=== PATIENT | male | born 1990 | race Caucasian/White ===

== ENCOUNTER 2019-02-05 10:02 | Emergency (ER) | payer OTHER ==
[2019-02-05] MEDS ORDERED: Clindamycin HCl 150 MG Cap PO ONE (10:21)
--- NOTE | 2019-02-05 10:27 | EDM.PDOC ---
ED HPI GENERAL MEDICAL PROBLEM - General Chief Complaint: ENT Problem Stated Complaint: SORE THROAT Time Seen by Provider: 02/05/19 10:10 Source of Information: Reports: Patient History Limitations: Reports: No Limitations - History of Present Illness INITIAL COMMENTS - FREE TEXT/NARRATIVE: HISTORY AND PHYSICAL: History of present illness: Patient is a 28-year-old male who presents to the emergency room with complaints of sore throat and left ear pain. Has been using Tylenol and ibuprofen without much relief. Patient denies any fever, chills, headache, change in vision, syncope or near syncope. Denies any chest pain, back pain, shortness of breath or cough. Denies any GI or symptoms. Patient has been eating and drinking appropriately. Review of systems: As per history of present illness and below otherwise all systems reviewed and negative. Past medical history: As per history of present illness and as reviewed below otherwise noncontributory. Surgical history: As per history of present illness and as reviewed below otherwise noncontributory. Social history: See social history for further information Family history: As per history of present illness and as reviewed below otherwise noncontributory. Physical exam: General: Well-developed and well-nourished 28-year-old male. Alert and oriented. Nontoxic appearing and in no acute distress. HEENT: Atraumatic, normocephalic, pupils equal and reactive bilaterally, negative for conjunctival pallor or scleral icterus, mucous membranes moist, TMs normal bilaterally, throat erythematous with minimal lateral exudate, no pillor shifting or fullness, neck supple, nontender, trachea midline. No drooling or trismus noted. No meningeal signs. No hot potato voice noted. Lungs: Clear to auscultation, breath sounds equal bilaterally, chest nontender. Heart: S1S2, regular rate and rhythm without overt murmur Abdomen: Soft, nondistended, nontender. Skin: Intact, warm, dry. No lesions or rashes noted. Extremities: Atraumatic, moves all extremities per self without difficulty or deficits, negative for cords or calf pain. Neurovascular unremarkable. Neuro: Awake, alert, oriented. Cranial nerves II through XII unremarkable. Cerebellum unremarkable. Motor and sensory unremarkable throughout. Exam nonfocal. Notes: Medication and supportive care measures were reviewed and discussed. Voices understanding and is agreeable to plan of care. Denies any further questions or concerns at this time. Diagnostics: None Therapeutics: Clindamycin Prescription: Clindamycin Phenergan with codeine (#4oz) Impression: Pharyngitis Plan: 1. Take your medication as directed. 2. Warm Salt water gargles (rinse and spit) 3-4 x daily. Please get a new tooth brush after completion of your medication 3. Tylenol and or ibuprofen as needed for pain management. 4. Follow-up with your primary care provider in the next 1-2 days. Return to the ED as needed and as discussed. Definitive disposition and diagnosis as appropriate pending reevaluation and review of above. Throat Pain Score (Numeric/FACES): 4 - Related Data Allergies Allergy/AdvReac Type Severity Reaction Status Date / Time amoxicillin Allergy Other Verified 02/05/19 10:14 Home Meds: Home Meds . [No Known Home Meds] 02/05/19 [History] Past Medical History - Past Health History Medical/Surgical History: Denies Medical/Surgical History - Past Surgical History HEENT Surgical History: Reports: Oral Surgery Social & Family History - Family History Family Medical History: Noncontributory - Tobacco Use Smoking Status *Q: Never Smoker - Recreational Drug Use Recreational Drug Use: No ED ROS ENT - Review of Systems Review Of Systems: ROS reveals no pertinent complaints other than HPI. ED EXAM, ENT - Physical Exam Exam: See Below (See dictation) Course - Vital Signs Last Recorded V/S: Last Vital Signs Temp 97.0 F 02/05/19 10:12 Pulse 62 02/05/19 10:12 Resp 18 02/05/19 10:12 BP 126/69 02/05/19 10:12 Pulse Ox 96 02/05/19 10:12 - Orders/Labs/Meds Orders: Active Orders 24 hr Category Date Time Status Clindamycin HCl [Cleocin] Med 02/05/19 10:21 Once 300 mg PO ONETIME ONE Medication Orders Clindamycin HCl (Cleocin) 300 mg PO ONETIME ONE Stop: 02/05/19 10:22 Meds: Medications Generic Name Dose Route Start Last Admin Trade Name Freq PRN Reason Stop Dose Admin Clindamycin HCl 300 mg 02/05/19 10:21 Cleocin PO 02/05/19 10:22 ONETIME ONE Departure - Departure Time of Disposition: 10:22 Disposition: Home, Self-Care 01 Clinical Impression: Pharyngitis Qualifiers: Pharyngitis/tonsillitis etiology: unspecified etiology Qualified Code(s): J02.9 - Acute pharyngitis, unspecified - Discharge Information Instructions: Pharyngitis, [id number] Additional Instructions: The following information is given to patients seen in the emergency department who are being discharged to home. This information is to outline your options for follow-up care. We provide all patients seen in our emergency department with a follow-up referral. The need for follow-up, as well as the timing and circumstances, are variable depending upon the specifics of your emergency department visit. If you don't have a primary care physician on staff, we will provide you with a referral. We always advise you to contact your personal physician following an emergency department visit to inform them of the circumstance of the visit and for follow-up with them and/or the need for any referrals to a consulting specialist. The emergency department will also refer you to a specialist when appropriate. This referral assures that you have the opportunity for follow-up care with a specialist. All of these measure are taken in an effort to provide you with optimal care, which includes your follow-up. Under all circumstances we always encourage you to contact your private physician who remains a resource for coordinating your care. When calling for follow-up care, please make the office aware that this follow-up is from your recent emergency room visit. If for any reason you are refused follow-up, please contact the [facility] Emergency Department at and asked to speak to the emergency department charge nurse. [facility] [address] [place] [address] [id number] [address] [address] 1. Take your medication as directed. 2. Warm Salt water gargles (rinse and spit) 3-4 x daily. Please get a new tooth brush after completion of your medication 3. Tylenol and or ibuprofen as needed for pain management. 4. Follow-up with your primary care provider in the next 1-2 days. Return to the ED as needed and as discussed. - My Orders Last 24 Hours: My Active Orders 02/05/19 10:21 Clindamycin HCl [Cleocin] 300 mg PO ONETIME ONE - Assessment/Plan Last 24 Hours: My Active Orders 02/05/19 10:21 Clindamycin HCl [Cleocin] 300 mg PO ONETIME ONE
== END 2019-02-05 10:34 | disposition home or self-care (01) ==
LOC: MW.ED 10:02
DX: J02.9 Acute pharyngitis, unspecified (principal); Z88.1 Allergy status to other antibiotic agents; Z98.890 Other specified postprocedural states
CPT/HCPCS: 99282; A9270

== ENCOUNTER 2019-02-06 11:58 | Emergency (ER) | payer OTHER ==
[2019-02-06] MEDS ORDERED: Sodium Chloride 0.9% 1,000 ML IV ONE (12:01)
[2019-02-06] MEDS ORDERED: methylPREDNISolone Sodium Succinate 125 MG/2 ML SDV IVPUSH ONE (12:01)
[2019-02-06] MEDS ORDERED: Ketorolac 30 MG/ML SDV IVPUSH ONE (12:02)
--- NOTE | 2019-02-06 12:13 | EDM.PDOC ---
ED HPI GENERAL MEDICAL PROBLEM - General Chief Complaint: ENT Problem Stated Complaint: SWOLLEN THROAT TROUBLE BREATHING Time Seen by Provider: 02/06/19 12:01 Source of Information: Reports: Patient History Limitations: Reports: No Limitations - History of Present Illness INITIAL COMMENTS - FREE TEXT/NARRATIVE: HISTORY AND PHYSICAL: History of present illness: Patient is a 28-year-old male who presents to the emergency room with complaints of throat pain, swelling and dyspnea. Patient was seen in the emergency room yesterday for pharyngitis/tonsillitis and was started on clindamycin. He states he has taken 4 doses of his clindamycin and is not getting any relief, in fact feel like his tonsils have gotten larger and has difficulty swallowing his secretions. Patient denies any fever, chills, headache , change in vision, syncope or near syncope. Denies any chest pain, back pain, shortness of breath or cough. Denies any abdominal pain, nausea, vomiting, diarrhea, constipation or dysuria. Has not noted any blood in urine or stool. Patient has been eating and drinking appropriately. Review of systems: As per history of present illness and below otherwise all systems reviewed and negative. Past medical history: As per history of present illness and as reviewed below otherwise noncontributory. Surgical history: As per history of present illness and as reviewed below otherwise noncontributory. Social history: See social history for further information Family history: As per history of present illness and as reviewed below otherwise noncontributory. Physical exam: General: Well-developed and well-nourished 28-year-old male. Alert and oriented. Nontoxic appearing and mildly uncomfortable due to throat pain vital signs are stable and have been reviewed by me. HEENT: Atraumatic, normocephalic, pupils equal and reactive bilaterally, negative for conjunctival pallor or scleral icterus, mucous membranes moist, TMs normal bilaterally, patient is unable to fully open his mouth due to pain. Of what I can view there is moderate swelling of bilateral tonsils with erythema. Neck supple, enlarged lymph nodes bilaterally, lymph node tenderness to the left neck trachea midline. No drooling noted. No meningeal signs. Lungs: Clear to auscultation, breath sounds equal bilaterally, chest nontender. Heart: S1S2, regular rate and rhythm without overt murmur Abdomen: Soft, nondistended, nontender. Negative for masses or hepatosplenomegaly. Negative for costovertebral tenderness. Skin: Intact, warm, dry. No lesions or rashes noted. Extremities: Atraumatic, moves all extremities per self without difficulty or deficits, negative for cords or calf pain. Neurovascular unremarkable. Neuro: Awake, alert, oriented. Cranial nerves II through XII unremarkable. Cerebellum unremarkable. Motor and sensory unremarkable throughout. Exam nonfocal. Notes: Physical examination reveals tonsils that are much larger than previous. We'll do a CT along with lab work to rule out peritonsillar abscess. Patient does have a white count of 13.47. He has a 1.6 x 2.2 x 1.5 cm left peritonsillar abscess with adjacent edema and mass effect on the adjacent airway. We currently do not not have any ENT available in [place]. [facility] in [place] was consulted, Dr Gaona, accepted this patient. Patient is aware of diagnostics. We discussed the need for transfer, he declines EMS transfer. He is aware of the risks of signing out AGAINST MEDICAL ADVICE to drive himself to [facility], including . He accepts these risks and would like to take his private vehicle. Vital signs are stable. Patient received IV Cipro and Rocephin prior to transfer to [facility] in [place] Diagnostics: CBC, CMP, CT soft tissue neck Therapeutics: IV fluid, Solu-Medrol Impression: Peritonsillar abscess, left Plan: Go directly to [facility] ER: Dr Gaona Nothing to eat or drink until you are cleared by the doctor in [place] Definitive disposition and diagnosis as appropriate pending reevaluation and review of above. Throat Pain Score (Numeric/FACES): 8 - Related Data Allergies Allergy/AdvReac Type Severity Reaction Status Date / Time amoxicillin Allergy Other Verified 02/06/19 12:03 Home Meds: Home Meds Clindamycin HCl [Cleocin HCl] 300 mg PO TID 02/06/19 [History] Past Medical History - Past Health History Medical/Surgical History: Denies Medical/Surgical History - Past Surgical History HEENT Surgical History: Reports: Oral Surgery Social & Family History - Family History Family Medical History: Noncontributory ED ROS ENT - Review of Systems Review Of Systems: ROS reveals no pertinent complaints other than HPI. ED EXAM, ENT - Physical Exam Exam: See Below (See dictation) Course - Vital Signs Last Recorded V/S: Last Vital Signs Temp 99.1 F 02/06/19 12:03 Pulse 108 H 02/06/19 12:03 Resp 20 02/06/19 12:03 BP 154/81 H 02/06/19 12:03 Pulse Ox 96 02/06/19 12:03 - Orders/Labs/Meds Orders: Active Orders 24 hr Category Date Time Status CULTURE BLOOD [BC] Stat Lab 02/06/19 12:21 Received CULTURE BLOOD [] Stat Lab 02/06/19 12:28 Received CULTURE STREP A CONFIRMATION [] Stat Lab 02/06/19 12:07 Results STREP SCRN A RAPID W CULT CONF [] Stat Lab 02/06/19 12:07 Results Clindamycin Phosphate in D5W [Cleocin in D5W] 900 mg Med 02/06/19 14:27 Ordered Premix Bag 1 bag IV ONETIME cefTRIAXone [Rocephin in Dextrose,Iso-Osm 1 GM/50 ML] 1 Med 02/06/19 14:27 Ordered gm Premix Bag 1 bag IV ONETIME Blood Culture x2 Reflex Set [OM.PC] Stat Oth 02/06/19 12:13 Ordered Medication Orders Ceftriaxone Sodium/Dextrose 1 (gm/ Premix) 50 mls @ 100 mls/hr IV ONETIME ONE Stop: 02/06/19 14:56 Last Admin: 02/06/19 14:34 Dose: Not Given Clindamycin Phosphate 900 mg/ (Premix) 50 mls @ 100 mls/hr IV ONETIME ONE Stop: 02/06/19 14:56 Labs: Laboratory Tests 02/06/19 02/06/19 Range/Units 12:00 12:00 WBC 13.47 H (4.0-11.0) K/uL RBC 4.98 (4.50-5.90) M/uL Hgb 15.3 (13.0-17.0) g/dL Hct 44.3 (38.0-50.0) % MCV 89.0 (80.0-98.0) fL MCH 30.7 (27.0-32.0) pg MCHC 34.5 (31.0-37.0) g/dL RDW Std Deviation 41.2 (28.0-62.0) fl RDW Coeff of Sunil 13 (11.0-15.0) % Plt Count 267 (150-400) K/uL MPV 9.50 (7.40-12.00) fL Neut % (Auto) 79.3 (48.0-80.0) % Lymph % (Auto) 11.1 L (16.0-40.0) % [place] % (Auto) 9.1 (0.0-15.0) % Eos % (Auto) 0.4 (0.0-7.0) % Baso % (Auto) 0.1 (0.0-1.5) % Neut # (Auto) 10.7 H (1.4-5.7) K/uL Lymph # (Auto) 1.5 (0.6-2.4) K/uL [place] # (Auto) 1.2 H (0.0-0.8) K/uL Eos # (Auto) 0.1 (0.0-0.7) K/uL Baso # (Auto) 0.0 (0.0-0.1) K/uL Nucleated RBC % 0.0 /100WBC Nucleated RBCs # 0 K/uL Sodium 139 (136-148) mmol/L Potassium 3.8 (3.5-5.1) mmol/L Chloride 103 (98-107) mmol/L Carbon Dioxide 26.2 (21.0-32.0) mmol/L BUN 14 (7.0-18.0) mg/dL Creatinine 0.9 (0.8-1.3) mg/dL Est Cr Clr Drug Dosing 139.33 mL/min Estimated GFR (MDRD) > 60.0 ml/min Glucose 100 (74-106) mg/dL Calcium 9.2 (8.5-10.1) mg/dL Total Bilirubin 0.8 (0.2-1.0) mg/dL AST 14 L (15-37) IU/L ALT 26 (14-63) IU/L Alkaline Phosphatase 62 (46-116) U/L Total Protein 8.0 (6.4-8.2) g/dL Albumin 4.1 (3.4-5.0) g/dL Globulin 3.9 (2.6-4.0) g/dL Albumin/Globulin Ratio 1.1 (0.9-1.6) Meds: Medications Generic Name Dose Route Start Last Admin Trade Name Freq PRN Reason Stop Dose Admin Ceftriaxone Sodium/Dextrose 1 50 mls @ 100 mls/hr 02/06/19 14:27 02/06/19 14: 34 gm/ Premix IV 02/06/19 14:56 Not Given ONETIME ONE Clindamycin Phosphate 900 mg/ 50 mls @ 100 mls/hr 02/06/19 14:27 Premix IV 02/06/19 14:56 ONETIME ONE Discontinued Medications Generic Name Dose Route Start Last Admin Trade Name Grace PRN Reason Stop Dose Admin Sodium Chloride 1,000 mls @ 999 mls/hr 02/06/19 12:01 02/06/19 12:15 Normal Saline IV 02/06/19 13:01 999 mls/hr STAT ONE Administration Ketorolac Tromethamine 30 mg 02/06/19 12:02 02/06/19 12:15 Toradol IVPUSH 02/06/19 12:03 30 mg ONETIME ONE Administration Methylprednisolone Sodium Succinate 125 mg 02/06/19 12:01 02/06/19 12:15 Solu-Medrol IVPUSH 02/06/19 12:02 125 mg ONETIME ONE Administration Morphine Sulfate 4 mg 02/06/19 14:28 02/06/19 14:33 Morphine IVPUSH 02/06/19 14:29 Not Given ONETIME ONE Ondansetron HCl 4 mg 02/06/19 14:28 02/06/19 14:33 Zofran IVPUSH 02/06/19 14:29 Not Given ONETIME ONE Departure - Departure Time of Disposition: 14:41 Disposition: DC/Tfer to Other 70 Clinical Impression: Peritonsillar abscess - Discharge Information Instructions: Skin Abscess, [id number] Referrals: PCP,Unknown [Primary Care Provider] - Forms: ED Department Discharge Additional Instructions: The following information is given to patients seen in the emergency department who are being discharged to home. This information is to outline your options for follow-up care. We provide all patients seen in our emergency department with a follow-up referral. The need for follow-up, as well as the timing and circumstances, are variable depending upon the specifics of your emergency department visit. If you don't have a primary care physician on staff, we will provide you with a referral. We always advise you to contact your personal physician following an emergency department visit to inform them of the circumstance of the visit and for follow-up with them and/or the need for any referrals to a consulting specialist. The emergency department will also refer you to a specialist when appropriate. This referral assures that you have the opportunity for follow-up care with a specialist. All of these measure are taken in an effort to provide you with optimal care, which includes your follow-up. Under all circumstances we always encourage you to contact your private physician who remains a resource for coordinating your care. When calling for follow-up care, please make the office aware that this follow-up is from your recent emergency room visit. If for any reason you are refused follow-up, please contact the [facility] Emergency Department at and asked to speak to the emergency department charge nurse. [facility] [address] [facility] [address] Go directly to [facility]: Dr Gaona Nothing to eat or drink until you are cleared by the doctor in [place] - My Orders Last 24 Hours: My Active Orders 02/06/19 12:07 CULTURE STREP A CONFIRMATION [RM] Stat STREP SCRN A RAPID W CULT CONF [RM] Stat 02/06/19 12:13 Blood Culture x2 Reflex Set [OM.PC] Stat 02/06/19 12:21 CULTURE BLOOD [BC] Stat 02/06/19 12:28 CULTURE BLOOD [BC] Stat 02/06/19 14:27 Clindamycin Phosphate in D5W [Cleocin in D5W] 900 mg Premix Bag 1 bag IV ONETIME cefTRIAXone [Rocephin in Dextrose,Iso-Osm 1 GM/50 ML] 1 gm Premix Bag 1 bag IV ONETIME - Assessment/Plan Last 24 Hours: My Active Orders 02/06/19 12:07 CULTURE STREP A CONFIRMATION [RM] Stat STREP SCRN A RAPID W CULT CONF [RM] Stat 02/06/19 12:13 Blood Culture x2 Reflex Set [OM.PC] Stat 02/06/19 12:21 CULTURE BLOOD [BC] Stat 02/06/19 12:28 CULTURE BLOOD [BC] Stat 02/06/19 14:27 Clindamycin Phosphate in D5W [Cleocin in D5W] 900 mg Premix Bag 1 bag IV ONETIME cefTRIAXone [Rocephin in Dextrose,Iso-Osm 1 GM/50 ML] 1 gm Premix Bag 1 bag IV ONETIME
[2019-02-06 12:45] LABS: CHLORIDE,CL 103 mmol/L (98-107); SODIUM,NA 139 mmol/L (136-148)
--- NOTE | 2019-02-06 14:18 | CT ---
EXAMINATION: CT soft tissue neck with contrast HISTORY: Swelling COMPARISON: None TECHNIQUE: Axial CT imaging obtained through the neck following the administration of 70 mL of Isovue-370 the left antecubital fossa. Coronal and sagittal reconstructions obtained. FINDINGS: There is a 1.6 x 3.2 x 1.5 cm left peritonsillar collection noted. There is moderate adjacent edema and mass effect on the airway. Swelling extends along the left upper neck adjacent to the left submandibular gland. Moderate cervical chain lymph nodes are noted measuring up to 1.4 cm, likely reactive. Paranasal sinuses and mastoid air cells are clear. The retropharyngeal space appears preserved. Thyroid and parotid glands appear normal. The orbits and globes appear symmetric. Lung apices are clear. Visualized osseous structures appear normal. IMPRESSION: 1. There is a 1.6 x 3.2 x 1.5 cm left peritonsillar abscess with adjacent edema and mass effect on the adjacent airway.
[2019-02-06] MEDS ORDERED: Clindamycin Phosphate in D5W 900 MG in Premix Bag 1 BAG IV ONE ×2 (14:27)
[2019-02-06] MEDS ORDERED: cefTRIAXone 1 GM in Premix Bag 1 BAG IV ONE (14:27)
[2019-02-06] MEDS ORDERED: Morphine 4 MG/ML Syringe IVPUSH ONE (14:28)
[2019-02-06] MEDS ORDERED: Ondansetron 4 MG/2 ML SDV IVPUSH ONE (14:28)
[2019-02-06] MEDS ORDERED: cefTRIAXone 1 GM Vial ONE (14:36)
[2019-02-06] MEDS ORDERED: cefTRIAXone 1 GM in Lidocaine 1% 4 ML IM ONE (14:37)
[2019-02-06] MEDS ORDERED: Iopamidol 755 MG/ML 500 ML Multipack Bottle IVPUSH ONE (15:26)
== END 2019-02-06 15:17 | disposition other institution (70) ==
LOC: MW.ED 11:58
DX: J36 Peritonsillar abscess (principal); Z88.1 Allergy status to other antibiotic agents
CPT/HCPCS: 36415; 70491; 80053; 85025; 87040; 87081; 87880; 96361; 96365; 96372; 96375; 99285; A4217; J0696; J1885; J2001; J2930; J3490; J7040; Q9967; 99284